=== PATIENT | male | born 1945 | race African-American/Black ===

== ENCOUNTER 2021-04-02 20:25 | Emergency (ER) | payer MEDICARE, OTHER ==
[~2021-04-02] VITALS: Ht 165.1 cm; Wt 72.7 kg
--- NOTE | 2021-04-02 22:30 | RAD ---
Exam: Chest 2 views INDICATION: Cough and chest congestion TECHNIQUE: Frontal and lateral views the chest Comparisons: None FINDINGS: The cardiomediastinal silhouette and pulmonary vessels are within normal limits. Left lower lobe pneumonia. No pleural effusion. IMPRESSION: Left lower lobe pneumonia. Follow-up imaging posttreatment to ensure resolution is recommended. Electronically signed by: Cady Lew MD (04/02/2021 10:27 PM) [facility]
[2021-04-02] MEDS ORDERED: AMOXICILLIN/K CLAV 875/125MG TABLET. PO ONE (22:45)
[2021-04-02] MEDS ORDERED: ERYTHROMYCIN 0.5% OPHTH OINTMENT 1GM TUBE. OU ONE (22:45)
[2021-04-02] MEDS ORDERED: AMOX1TAB61 PO (22:51)
[2021-04-02] MEDS ORDERED: GUAI400T78 PO (22:51)
[2021-04-02] MEDS ORDERED: POLY10DR3 EACHEYE (22:51)
--- NOTE | 2021-04-02 22:51 | ED.ADGEN ---
Past Medical History Past Surgical History: Other Additional Past Surgical Histo: hemorrhoidectomy General Adult EDM: Chief Complaint: Congestion HPI: HPI: Patient is a 75 year old male coming in for bilateral eye redness with, Cough productive of yellow phlegm. Denies any fevers or GI complaints. Has had both of his Covid vaccines. No known sick contacts. Has history of diabetes. Review of Systems: Review of Systems: All other systems within normal limits except for as noted in the HPI Allergies: Allergies: Allergies Coded Allergies Type Severity Reaction Last Updated Verified No Known Drug Allergies 04/02/21 No Physical Exam: PE: Constitutional: Well developed, well nourished, no acute distress, non-toxic appearance. [] HENT: Normocephalic, atraumatic, bilateral external ears normal, nose normal. [] Eyes: PERRLA, bilateral conjunctiva injection, purulent discharge around lash Neck: No rigidity, supple, no stridor. [] Cardiovascular: Regular rate and rhythm, brisk cap refill [] Lungs & Thorax: Non labored symmetric respirations, no tachypnea or respiratory distress [] Abdomen: Soft, nondistended. Skin: Warm, dry, no erythema, no rash. [] Back: Unremarkable Extremities: No deformities, range of motion grossly intact, no lower extremity edema [] Neurologic: Alert and oriented X 3, no focal deficits noted. [] Psychologic: Affect normal, judgement normal, mood normal. [] Current Patient Data: Vital Signs: Vital Signs Date Time Temp Pulse Resp B/P (MAP) Pulse Ox O2 Delivery O2 Flow Rate FiO2 04/02/21 21:30 98.4 92 18 182/101 100 Room Air 98.4 EKG: EKG: [] Heart Score: C/O Chest Pain: No Risk Factors: Risk Factors: DM, Current or recent (<one month) smoker, HTN, HLP, family history of CAD, obesity. Risk Scores: Score 0 - 3: 2.5% MACE over next 6 weeks - Discharge Home Score 4 - 6: 20.3% MACE over next 6 weeks - Admit for Clinical Observation Score 7 - 10: 72.7% MACE over next 6 weeks - Early Invasive Strategies Radiology/Procedures: Radiology/Procedures: [facility] [address] [place] [address] IMAGING REPORT Signed PATIENT: KATHY POLO ACCOUNT: [id number] : 1945 LOCATION: ER AGE: 75 SEX: M EXAM STATUS: REG ER ORD. PHYSICIAN: THOMAS OBRIEN APRN REASON: Cough and chest congestion for 4 days PROCEDURE: CHEST PA & LATERAL Exam: Chest 2 views INDICATION: Cough and chest congestion TECHNIQUE: Frontal and lateral views the chest Comparisons: None FINDINGS: The cardiomediastinal silhouette and pulmonary vessels are within normal limits. Left lower lobe pneumonia. No pleural effusion. IMPRESSION: Left lower lobe pneumonia. Follow-up imaging posttreatment to ensure resolution is recommended. Electronically signed by: Cady Alvarez MD (04/02/2021 10:27 PM) [facility] DICTATED and SIGNED BY: CADY ALVAREZ MD DATE: 04/02/21 [id number] [] Course & Med Decision Making: Course & Med Decision Making Pertinent Labs and Imaging studies reviewed. (See chart for details) [] Dragon Disclaimer: Dragon Disclaimer: This electronic medical record was generated, in whole or in part, using a voice recognition dictation system. Departure Departure Impression: Primary Impression: Acute bacterial conjunctivitis of both eyes Additional Impression: LLL pneumonia Disposition: 01 HOME / SELF CARE / HOMELESS Condition: STABLE Referrals: KRISTY SCHAEFER MD (PCP) Patient Instructions: Bacterial Conjunctivitis Scripts Amoxicillin/Potassium Clav (AUGMENTIN 875-125 TABLET) 1 Each Tablet 1 TAB PO Q12HR for antibiotic for 5 Days, #10 TAB Prov: OTONIEL FLORES MD 04/02/21 Guaifenesin (GUAIFENESIN) 400 Mg Tablet 1 TAB PO TID for cough for 5 Days, #15 TAB 0 Refills Prov: OTONIEL FLORES MD 04/02/21 Polymyxin B Sulf/Trimethoprim (POLYMYXIN B-TMP EYE DROPS) 10 Ml Drops 1 DROP EACHEYE QID for antibiotic for 7 Days, #10 ML 0 Refills Prov: OTONIEL FLORES MD 04/02/21 Problem Qualifiers OTONIEL FLORES MD Apr 02, 2021 22:51
[2021-04-02 23:05] VITALS: BP 176/96
== END 2021-04-02 23:05 | disposition home or self-care (01) ==
LOC: ER 20:25
DX: J18.9 Pneumonia, unspecified organism (principal); H10.33 Unspecified acute conjunctivitis, bilateral
CPT/HCPCS: 71046; 99283